=== PATIENT | female | born 1975 | race Caucasian/White ===

== ENCOUNTER 2017-06-22 07:03 | Day surgery (SDC) | payer OTHER ==
[~2017-06-22] VITALS: Ht 167.6 cm; Wt 75.0 kg
[~2017-06-22 07:03] MED LIST: SODIUM CHLORIDE 0.9% 1,000 ML IV ONE
[2017-06-22] MEDS ORDERED: PROPOFOL 1% 20 ML VIAL IVP ONE (07:04)
[2017-06-22] MEDS ORDERED: LIDOCAINE HCL/PF 2% 5 ML VIAL INJ ONE (07:04)
[2017-06-22] MEDS ORDERED: SODIUM CHLORIDE 0.9% 1,000 ML IV ONE (07:11)
[2017-06-22] MEDS ORDERED: NORG1TAB53 PO (07:18)
[2017-06-22] MEDS ORDERED: OXYGEN THERAPY IH SCH (20:00)
== END 2017-06-22 10:35 | disposition home or self-care (01) ==
LOC: SURGERY 07:03
PROVIDERS: ATTEND Specialist
DX: K64.1 Second degree hemorrhoids (principal); K64.4 Residual hemorrhoidal skin tags; K57.30 Diverticulosis of large intestine without perforation or abscess without bleeding; Z88.1 Allergy status to other antibiotic agents; Z88.8 Allergy status to other drugs, medicaments and biological substances; Z98.890 Other specified postprocedural states
CPT/HCPCS: 45398; 84703; J2704; J3490; J7030